=== PATIENT | female | born 1980 | race Caucasian/White ===

== ENCOUNTER 2020-05-23 10:19 | Outpatient (CLI) | payer OTHER, SELFPAY ==
--- NOTE | ~2020-05-23 | XR_ITS ---
EXAMINATION: XR elbow LT min 3V DATE: 05/23/2020 10:41 INDICATION: Left elbow pain. TECHNIQUE: 3 views of left elbow were obtained. COMPARISON: None. FINDINGS: Bone alignment is normal. No fracture. Joint spaces are well maintained. There is no elbow joint effusion. IMPRESSION: 1. Normal left elbow. Reviewed, dictated and finalized at location B. ICAL THERAPY DIRECTOR IMPRESSION: 1. Normal left elbow.
== END 2020-05-23 10:20 | disposition home or self-care (01) ==
LOC: CHSIMG 10:23
PROVIDERS: PCP Family Medicine; Visit Provider Orthopaedic Surgery
DX: M25.522 Pain in left elbow (principal)
CPT/HCPCS: 73080

== ENCOUNTER 2020-10-15 07:56 | Outpatient (CLI) | payer OTHER, SELFPAY | END 2020-10-15 07:57 | disposition home or self-care (01) | LOC: CHSCOVIDVC 07:56 | PROVIDERS: PCP Family Medicine | DX: Z23 Encounter for immunization (principal) | CPT/HCPCS: 0011A; 91301 ==

== ENCOUNTER 2020-11-12 08:02 | Outpatient (CLI) | payer OTHER, SELFPAY | END 2020-11-12 08:03 | disposition home or self-care (01) | LOC: CHSCOVIDVC 08:02 | PROVIDERS: PCP Family Medicine | DX: Z23 Encounter for immunization (principal) | CPT/HCPCS: 0012A; 91301 ==

== ENCOUNTER 2021-06-14 15:19 | Outpatient (CLI) | payer OTHER, SELFPAY ==
[2021-06-14 16:43] LABS: SARS-CoV-2 Ag Negative (Negative)
== END 2021-06-14 15:20 | disposition home or self-care (01) ==
LOC: CHSLAB 15:22
PROVIDERS: PCP Family Medicine; Visit Provider Physician Assistant
DX: Z20.822 Contact with and (suspected) exposure to COVID-19 (principal)
CPT/HCPCS: 87426; C9803

== ENCOUNTER 2021-06-19 13:48 | Outpatient (CLI) | payer OTHER, SELFPAY ==
[2021-06-19 15:08] LABS: SARS-CoV-2 Ag Positive (Negative)
== END 2021-06-19 13:49 | disposition home or self-care (01) ==
LOC: CHSLAB 13:50
PROVIDERS: PCP Family Medicine; Visit Provider Family Medicine
DX: U07.1 COVID-19 (principal)
CPT/HCPCS: 87426; C9803

== ENCOUNTER 2021-07-14 08:25 | Outpatient (CLI) | payer OTHER, SELFPAY ==
--- NOTE | ~2021-07-14 | MM_ITS ---
EXAMINATION: MM screening willie BI w eagle HISTORY: Baseline screening mammogram TECHNIQUE: Craniocaudal and mediolateral oblique 3-D tomosynthesis images were obtained and synthetic 2-D images were generated. CAD analysis was submitted and interpreted. COMPARISON: None, baseline BREAST PARENCHYMAL COMPOSITION: There are scattered areas of fibroglandular density. FINDINGS: RIGHT BREAST: An asymmetry is present in the lower breast 4.5 cm from the nipple on the mediolateral oblique view. LEFT BREAST: There is focal asymmetry anterior third slightly outer breast approximately 3 cm from th e nipple. IMPRESSION: 1. Bilateral breast findings as described above. 2. Additional mammographic views and possible breast ultrasound are recommended. BI-RADS Category 0: Incomplete: Needs additional imaging evaluation. Reviewed, dictated and finalized at location A. ER IMPRESSION: 1. Bilateral breast findings as described above. 2. Additional mammographic views and possible breast ultrasound are recommended . BI-RADS Category 0: Incomplete: Needs additional imaging evaluation.
== END 2021-07-14 08:26 | disposition home or self-care (01) ==
LOC: CHSIMG 08:27
PROVIDERS: PCP Family Medicine; Visit Provider Family Medicine
DX: Z12.31 Encounter for screening mammogram for malignant neoplasm of breast (principal)
CPT/HCPCS: 77063; 77067

== ENCOUNTER 2021-07-28 08:16 | Outpatient (CLI) | payer OTHER, SELFPAY ==
--- NOTE | ~2021-07-28 | MM_ITS ---
EXAMINATION: MM diagnostic willie BI w eagle HISTORY: Right breast asymmetry and focal asymmetry of the left breast on screening mammogram TECHNIQUE: Additional 3-D tomosynthesis images of the breasts were performed and synthetic 2-D images were generated. CAD analysis was submitted and interpreted. COMPARISON: 07/14/2021 FINDINGS: No persistent asymmetry or focal asymmetry are identified with spot compression views of th e breasts. There is no suspicious mass, calcification, or architectural distortion. IMPRESSION: 1. No mammographic evidence of malignancy. 2. Recommend routine screening mammography in one year. BI-RADS Category 1: Negative Reviewed, dictated and finalized at location A. NGUAL INSIDE SALES REPRESENTATIVE
== END 2021-07-28 08:17 | disposition home or self-care (01) ==
PROVIDERS: PCP Family Medicine; Visit Provider Nurse Practitioner Women's Health
DX: R92.8 Other abnormal and inconclusive findings on diagnostic imaging of breast (principal)
CPT/HCPCS: 77062; 77066; G0279

== ENCOUNTER 2022-12-10 14:34 | Outpatient (CLI) | payer OTHER, SELFPAY ==
--- NOTE | ~2022-12-10 | MM_ITS ---
EXAMINATION: MM screening willie BI w eagle HISTORY: Screening mammogram TECHNIQUE: Craniocaudal and mediolateral oblique 3-D tomosynthesis images were obtained and synthetic 2-D images were generated. CAD analysis was submitted and interpreted. COMPARISON: July 28, 2021 diagnostic bilateral mammogram 07/14/2021 bilateral screening mammogram BREAST PARENCHYMAL COMPOSITION: There are scattered areas of fibroglandular density. FINDINGS: There is no evidence of suspicious mass, calcification, or architectural distortion to sugg est malignancy in either breast. There has been no suspicious interval change. IMPRESSION: 1. No mammographic evidence of malignancy. 2. Recommend routine screening mammography in one year. BI-RADS Category 1: Negative Reviewed, dictated and finalized at location A.
== END 2022-12-10 14:35 | disposition home or self-care (01) ==
LOC: CHSIMG 14:35
PROVIDERS: PCP Family Medicine; Visit Provider Family Medicine
DX: Z12.31 Encounter for screening mammogram for malignant neoplasm of breast (principal)
CPT/HCPCS: 77063; 77067

== ENCOUNTER 2023-12-16 07:57 | Outpatient (CLI) | payer OTHER, SELFPAY ==
--- NOTE | ~2023-12-16 | MM_ITS ---
EXAMINATION: MM screening willie BI w eagle HISTORY: Screening mammogram TECHNIQUE: Craniocaudal and mediolateral oblique 3-D tomosynthesis images were obtained and synthetic 2-D images were generated. CAD analysis was submitted and interpreted. COMPARISON: 12/10/2022, 07/28/2021, 07/14/2021 BREAST PARENCHYMAL COMPOSITION:Not Dense. The breasts are almost entirely fatty FINDINGS: No suspicious mass, calcification, or architectural distortion are identified in either kj ast to suggest malignancy. There has been no suspicious interval change. IMPRESSION: No mammographic evidence of malignancy. Recommend routine screening mammography in one year. BI-RADS Category 1: Negative Reviewed, dictated and finalized at location .
== END 2023-12-16 07:58 | disposition home or self-care (01) ==
LOC: CHSIMG 07:59
PROVIDERS: PCP Family Medicine; Visit Provider Registered Nurse
DX: Z12.31 Encounter for screening mammogram for malignant neoplasm of breast (principal)
CPT/HCPCS: 77063; 77067

== ENCOUNTER 2024-01-28 22:34 | Emergency (ER) | payer OTHER, SELFPAY ==
--- NOTE | ~2024-01-28 | CT_ITS ---
EXAMINATION: CT abdomen pelvis wo con DATE: 01/28/2024 22:47 INDICATION: right flank pain TECHNIQUE: Computed tomography (CT) of the abdomen and pelvis was performed without intravenous contr ast. Automated exposure control and iterative reconstruction technique were employed. The dose-length product was 796.52 mGy-cm. COMPARISON: None. FINDINGS: Lower thorax: Subsegmental lingular atelectasis/scar. Small air cyst in the right lower lobe. Calcifi ed right middle lobe granuloma. Liver: Mildly enlarged. Biliary/Gallbladder: Gallbladder is absent. No bile duct dilation. Pancreas: Punctate calcification over the pancreatic body may represent product pancreatic or vascula r calcification. Spleen: Normal. Adrenals:No mass. Kidneys: No suspicious mass, obstructing stone, or hydronephrosis. GI tract: No small or large bowel dilation. Normal appendix. Mesentery/Peritoneum: No ascites, mass, or free air. Retroperitoneum: No mass. Atherosclerotic abdominal aortic and/or arterial calcifications. Pelvis: Normal urinary bladder. Absent uterus. Normal bilateral ovaries. 3.1 cm circumscribed fluid d ensity right ovarian lesion, likely a simple cyst, no additional imaging recommended at this time. Soft Tissues: Soft tissues and body wall unremarkable. Bones: No acute osseous finding. IMPRESSION: Mild hepatomegaly. Otherwise unremarkable CT abdomen and pelvis findings. Reviewed, dictated and finalized at location K.
[2024-01-28 22:35] VITALS: BP 182/108; PULSE 97; RESP 18; TEMP 36.6; O2SAT 97
--- NOTE | 2024-01-28 22:40 | ED.BACK ---
HPI - Back Pain/Injury General Chief Complaint: Back Pain/Injury Stated Complaint: lower back and flank pain Time Seen by Provider: 01/28/24 22:38 History of Present Illness HPI Narrative: Pt presents with right low back pain for about a week off and on but steady since yesterday and worsening today. Pt says it waxes and wanes in severity. Pt says it gort worse with movement and started radiating around to front of abdomen and groin this evening. Pt denies problems with bladder or bowels or any numbness or weakness. Pt denies dysuria or frequency. Pt denies any injury. Related Data Home Medications Medication Instructions Recorded Confirmed venlafaxine 75 mg capsule,extended See Rx Instructions PO DAILY 05/23/20 release 24 hr (Effexor XR) tretinoin 0.05 % topical cream 1 applic topical QHS 11/14/23 venlafaxine 150 mg 150 mg PO DAILY 11/14/23 capsule,extended release 24 hr Allergies Allergy/AdvReac Type Severity Reaction Status Date / Time No Known Allergies Allergy Unverified 12/25/23 09:11 Review of Systems Review of Systems: All systems reviewed & are unremarkable except as noted in HPI and below PMFSH Past Medical History Medical History Allergies Anxiety Depression Lateral epicondylitis of left elbow Medial epicondylitis, left elbow Surgical History Surgical History H/O tubal [facility] Family History Family History Father Heart disease Mother Heart disease Other High cholesterol Hypertension Social History Social History Smoking packs per day: 0.5 Smoking cigarettes per day: 10.0 Years smoked: 17 Smoking pack-years: 8.50 Smoking status: Current every day smoker Tobacco type: cigarettes Alcohol intake: current Substance use: unknown Living arrangements: with family Occupation/Education: occupation Gender identity (if verbalized by the patient): Female Exam Const: General: healthy appearing and no acute distress Nutritional Appearance: well nourished Orientation/consciousness: patient oriented x3 Limitations: no limitations Neck: Neck: normal visual inspection Chest: Chest palpation & inspection: normal inspection of the chest Resp: Effort & Inspection: normal respiratory effort Auscultation: clear to auscultation bilaterally Cardio: Rate: regular rate Rhythm: regular rhythm GI: GI Palp: Yes Soft to palpation and No Tenderness to palpation present (GI) Auscultation: normal bowel sounds Back/Spine/Pelvis: Back: no CVA tenderness Other: tender right low paraspinous muscles with spasm Skin: General skin exam: normal color Rashes: no rashes Wounds: no wounds Neuro: General: patient oriented x3 Cranial nerves: Yes Nystagmus not present Speech: normal speech Gait exam (Neuro): Normal gait present Extrem: General: normal to inspection and no clubbing, cyanosis or edema Psych: Mental Status: mental status grossly normal Affect: normal affect Attitude: cooperative Course Vital Signs Vital signs: Vital Signs Temperature 97.9 F 01/28/24 22:35 Pulse Rate 97 01/28/24 22:35 Respiratory Rate 18 01/28/24 22:35 Blood Pressure 182/108 H 01/28/24 22:35 Pulse Oximetry 97 01/28/24 22:35 Oxygen Delivery Room Air 01/28/24 22:35 Temperature 97.9 F 01/28/24 22:35 Pulse Rate 97 01/28/24 22:35 Respiratory Rate 18 01/28/24 22:35 Blood Pressure 182/108 H 01/28/24 22:35 Pulse Oximetry 97 01/28/24 22:35 Oxygen Delivery Room Air 01/28/24 22:35 MDM - Back Pain/Injury MDM Narrative Medical decision making narrative: musculoskeltal back pain vs kidney stone vs pyelo. will check labs and UA and get Ct abd/pelvis to rule out stone. will give torad
[2024-01-28 22:57] LABS: Basophils Absolute Auto 0.05 K/mm3 (0.00-0.10); Basophils Percent Auto 0.7 % (0.0-1.0); Eosinophils Absolute Auto 0.19 K/mm3 (0.02-0.50); Eosinophils Percent Auto 2.5 % (1.0-6.0); Hematocrit 41.2 % (35.0-49.0); Hemoglobin 13.3 g/dL (12.0-15.0); Immature Granulocyte Absolute 0.02 K/mm3 (0.00-0.00); Immature Granulocyte Percent A 0.3 % (0.0-0.0); Lymphocytes Absolute Auto 2.73 K/mm3 (1.10-4.50); Lymphocytes Percent Auto 35.5 % (18.0-42.0); Mean Corpuscular HGB Conc 32.3 g/dL (32-36); Mean Corpuscular Hemoglobin 25.9 pg (27.0-31.0); Mean Corpuscular Volume 80.3 fL (78.0-102.0); Mean Platelet Volume 8.8 fl (9.2-11.8); Monocytes Absolute Auto 0.69 K/mm3 (0.10-0.90); Neutrophils Absolute Auto 4.01 K/mm3 (1.70-7.20); Platelet Count Result 301 K/mm3 (150-420); Red Blood Count 5.13 M/mm3 (4.20-5.40); Red Cell Distribution Width 15.1 % (11.6-14.4); White Blood Count 7.7 K/mm3 (4.8-10.8)
[2024-01-28 23:11] LABS: Alanine Aminotransferase 15 U/L (14-59); Albumin Level 3.4 g/dL (3.4-5.0); Alkaline Phosphatase 122 U/L (46-116); Anion Gap 6 mmol/L (4-12); Aspartate Amino Transferase 18 U/L (15-37); Bilirubin,Total 0.1 mg/dL (0.00-1.00); Blood Urea Nitrogen 15 mg/dL (7-18); Calcium 9.4 mg/dL (8.5-10.1); Carbon Dioxide 28 mmol/L (21-32); Chloride 99 mmol/L (98-108); Estimated CRCL calculation 61 ml/min; Estimated Glomerular Filt Rate 55; Glucose 107 mg/dL (70-99); Osmolality Calculated 276 mOsm/kg (285-295); Potassium 3.7 mmol/L (3.5-5.1); Sodium 133 mmol/L (136-145)
[2024-01-28] MEDS: SODIUM CHLORIDE 0.9% IV 1,000 ML 999 ML IV CONT (23:11)
[2024-01-28] MEDS: ONDANSETRON INJ 4 MG/2 ML VIAL IV PUSH (23:13)
[2024-01-28] MEDS: KETOROLAC 30 MG/ML VIAL (*BKC) 15 MG IV PUSH (23:14)
[2024-01-28 23:15] LABS: Add Urine Microscopic? NO; Appearance Urine Clear (Clear); Bilirubin Urine Negative (Negative); Blood Urine Trace-intact (Negative); Color Urine Yellow (Yellow); Glucose Urine UA Negative (Negative); Ketones Urine Negative (Negative); Leukocyte Esterase Ur Negative LEU/UL (Negative); Nitrate Urine Negative (Negative); Protein Urine Negative (Negative); Specific Grav Ur >= 1.030 (1.010-1.020); Urobilinogen Urine 0.2 mg/dL (0.2-1.0)
[2024-01-28] MEDS: fentaNYL CITRATE INJ (*CRX) 100 MCG/2 ML VIAL 50 MCG IV PUSH (23:20)
--- NOTE | 2024-01-28 23:53 | PC.NURSE ---
PT RESTING ON STRETCHER RATES PAIN 5/10 AT THIS PT STATES PAIN IS INTERMITTENT
[2024-01-29 00:52] VITALS: BP 155/83; PULSE 82; RESP 18; O2SAT 100
== END 2024-01-29 00:07 | disposition home or self-care (01) ==
PROVIDERS: Emergency Provider Emergency Medicine; PCP Family Medicine
DX: M54.50 Low back pain, unspecified (principal); F17.210 Nicotine dependence, cigarettes, uncomplicated
CPT/HCPCS: 36415; 74176; 80053; 81003; 85025; 96361; 96374; 99283; 99284; J1885; J2405; J3010; J7030

== ENCOUNTER 2024-11-30 13:48 | Outpatient (CLI) | payer OTHER, SELFPAY ==
--- OUTSIDE RECORDS SUMMARY | 2024-11-30 14:53 | XMS_ITS | Clinical Summary ---
Author Organization [facility] Address [address] [place] [address] Care Team Providers Care Risk Assessment Consultant Name Role Phone Jared Salomon MD Primary Care Provider [phone] Allergies No known active allergies Medications venlafaxine (EFFEXOR) 50 mg tablet Take 50 mg by mouth 2 (two) times a day Active multivit-mineral s/folic acid (ADULT ONE DAILY GUMMIES ORAL) Take by mouth Active Active Problems Problem Noted Date Diagnosed Date No pathologic diagnosis 10/31/2013 Overview (09/19/2016): No diagnosis Resolved Problems Problem Noted Date Diagnosed Date Resolved Date Menometrorrhagia 12/07/2019 02/16/2020 Intramural and submucous leiomyoma of uterus 0 02/16/2020 Encounter for sterilization 10/15/2018 02/16/2020 Overview (10/15/2018): Added automatically from request for surgery Surgical History Surgery Date Site/Laterality Comments OTHER SURGICAL HISTORY 06/17/2002 - 06/16/2003 : 7 hr labor OTHER SURGICAL HISTORY 06/17/2006 - 06/16/2007 : 1/2 hr labor CHOLECYSTECTOMY Cholecystectomy TUBAL LIGATION 12/10/2018 Bilateral salpingectomy DIAGNOSTIC LAPAROSCOPY 06/17/2000 - 06/16/2001 ovarian cyst TOTAL VAGINAL HYSTERECTOMY 01/20/2020 [facility], Jaydon's culdoplasty for submucosal fibroid Medical History Medical History Date Comments Hx Other Medical 2002 ; Outc ome: 29 week 4 lb(s) 7 oz Female Hx Other Medical 2006 ; Outc ome: 31 week 7 lb(s) 1 oz Male Depression Urinary tract infection Anemia Ovarian cyst Fibroid Family History Medical History Relation Name Comments Heart disease Father Heart disease; Hyperlipidemia Father Hyperlipidemi a; Relation Name Status Comments Father Social History Tobacco Use Types Packs/Day Years Used Date Smoking Tobacco: Every Day Cigarettes 0.5 20 Smokeless Tobacco: Current Tobacco Cessation:Ready to Q uit: Yes; Counseling Given: Yes Comments:Smoking History Packs/day: 0.5 Packs. 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 Gender Identity Not on file Sexual Orientation Not on file Obstetrics History Para Term AB IAB SAB Ectopic Multiple Livin g Live Births 2 2 Date Outcome GA Total Labor Labor/2nd/3rd Weight Sex Type Anes PTL Carola A1 A5 Name Clin Para Para Last Filed Vital Signs Vital Sign Reading Time Taken Comments Blood Pressure 120/70 03/22/2020 11:04 AM CDT Pulse 85 01/21/2020 9:00 AM CDT Temperature 36.7 C (98.1 F) 01/21/2020 9:00 AM CDT Respiratory Rate 18 01/21/2020 9:00 AM CDT Oxygen Saturation 99% 01/21/2020 4:15 AM CDT Inhaled Oxygen Concentration - - Weight 78 kg (172 lb) 03/22/2020 11:04 AM CDT Height 165.1 cm (5' 5) 03/22/2020 11:04 AM CDT Body Mass Index 28.62 03/22/2020 11:04 AM CDT Plan of Treatment Health Maintenance Due Date Last Done Comments Colon Cancer Screening-Colonoscopy 1978 Hepatitis C Screening 1978 DTaP/Tdap/Td Vaccine (1 - Tdap) 1989 Hepatitis B Screening 1996 Pneumococcal vaccine <65 (1 of 2 - PCV) 1997 Depression Screening 11/22/2020 11/23/2019 Regular Well Visit/Exam 18-64 11/22/2020 11/23/2019, 03/25/2018 Breast Cancer Screening-Mammogram 07/28/2022 07/28/2021, 07/14/2021 Covid-19 Vaccine ( season) 2024 11/12/2020, 10/15/2020 Influenza Vaccine (Season Ended) 2025 Cervical Cancer Screening Discontinued 2019, 03/25/2018 HPV Vaccines Aged Out No longer eligi ble based on patient's age to complete this topic Procedures Procedure Name Priority Date/Time Associated Diagnosis Comments MAMMOGRAPHY Schedule Routine, Read Routine (OP Routine) 07/28/2021 PAP IG, HPV-HR Routine 11/23/2019 11:58 AM CDT Well woman exam from Last 3 Months or Most Recently Relevant to Health Maintenance Results * MAMMOGRAPHY (07/28/2021) Anatomical Region Laterality Modality Breast Mammography Emma Wall NP IMG MAMMO PROCEDURES Akua l Result * Pap IG, HPV-hr (11/23/2019 11:58 AM CDT) Clinical indication Comment [facility] - 01 Comment:NEGATIVE FOR INTRAEP ITHELIAL LESION OR MALIGNANCY. Specimen adequacy: Comment [facility] - 01 Comment: Satisfactory for evaluation. Endocervical and/or squamous metaplastic cells (endocervical component) are present. Clinician provided ICD10 Comment [facility] - 01 Comment:Z01.419 Performed by Comment [facility] - 01 Comment:Tyson Somers, Cyto technologist (ASCP) . . [facility] - 01 Note: Comment [facility] - 01 Comment: The Pap smear is a screening test designed to aid in the detection of premalignant and malignant conditions of the uterine cervix. It is not a diagnostic procedure and should not be used as the sole means of detecting cervical cancer. Both false-positive and false-negative reports do occur. Test methodology Comment [facility] - 01 Comment: This liquid based ThinPrep(R) pap test was screened with the use of an image guided system. HPV, high-risk Negative Negative [facility] 02 Comment: This nucleic acid amplification high-risk HPV test detects thirteen high-risk types (16,18,31,33,35,39,45,51,52,56,58,59,68) without differentiation. Endocervical/vagi nal 11/23/2019 11:58 AM CDT 11/23/2019 Narrative [facility] - 11/25/2019 7:08 PM CDT Performed at: - [facility] [id number] Hadoop Analyst: Yenni Lindsey MD, Phone: [phone] Performed at: - [facility] [id number] Hadoop Analyst: Yenni Lindsey MD, Phone: [phone] Specimen Comment: No. of containers..01 ThinPrep Vial Emma Wall NP LAB PATHOLOGY ORDERABLES Final Result Performing Organization Address City/State/[facility] de [facility] Number [facility] - 01 [facility] 02 from Last 3 Months or Most Recently Relevant to Health Maintenance Insurance [facility] CHOICE PLUS Advance Directives For more information, please contact: [phone] * Full Code (Latest Code Status on File) Date Activated Date Inactivated Comments 01/20/2020 11:00 AM 01/21/2020 7:19 PM * Full Code Date Activated Date Inactivated Comments 12/10/2018 2:44 PM 12/10/2018 7:41 PM Care Teams Risk Assessment Consultant Relationship Specialty Start Date End Date Jared Salomon MD [address] [place] [id number] PCP - General 02/22/14
--- OUTSIDE RECORDS SUMMARY | 2024-11-30 14:53 | XMS_ITS | Referral Summary ---
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 of containers..01 ThinPrep Vial us Emma Wall NP LAB PATHOLOGY ORDERABLES Final Result [facility] - 01 [facility] 02 from Last 3 Months or Most Recently Relevant to Health Maintenance Insurance [facility] [place] [address] Advance Directives For more information, please contact: [phone] * Full Code (Latest Code Status on File) Date Activated Date Inactivated Comments 01/20/2020 11:00 AM 01/21/2020 7:19 PM * Full Code Date Activated Date Inactivated Comments 12/10/2018 2:44 PM 12/10/2018 7:41 PM Care Teams Salesperson Wigs Relationship Specialty Start Date End Date Jared Salomon MD [address] [place] [id number] PCP - General 02/22/14
== END 2024-11-30 13:49 | disposition home or self-care (01) ==
LOC: CHSAUDIO 13:49
PROVIDERS: PCP Otolaryngology; Visit Provider Otolaryngology
DX: H69.92 Unspecified Eustachian tube disorder, left ear (principal); H93.A2 Pulsatile tinnitus, left ear; H70.12 Chronic mastoiditis, left ear
CPT/HCPCS: 92557; 92567

== ENCOUNTER 2025-02-08 11:58 | Outpatient (CLI) | payer OTHER, SELFPAY ==
--- NOTE | ~2025-02-08 | MM_ITS ---
EXAMINATION: MM screening [facility] HISTORY: Screening TECHNIQUE: Craniocaudal and mediolateral oblique 3-D tomosynthesis images were obtained and synthetic 2-D images were generated. CAD analysis was submitted and interpreted. COMPARISON: Comparison to multiple prior studies sequentially, with oldest reviewed study dated 07/14/2021. BREAST PARENCHYMAL COMPOSITION: The breasts are almost entirely fatty. FINDINGS: There is no evidence of suspicious mass, calcification, or architectural distortion to suggest malignancy in either breast. IMPRESSION: 1. No mammographic evidence of malignancy. 2. Recommend routine screening mammography in one year. BI-RADS Category 1: Negative Reviewed, dictated and finalized at location B.
--- OUTSIDE RECORDS SUMMARY | 2025-02-08 12:23 | XMS_ITS | Patient Health Record ---
Author Organization [facility] Address [address] [place], [place] [id number] Care Team Providers Care Gravity Prospecting Observer Name Role Phone INGE MCKEON Unavailable [phone] Rico Valenzuela Unavailable Unavailable Reason For Referral No Information Plan Of Treatment No Information Insurance Providers Payer Name Payer Address Payer Phone Subscriber Number Group Number Insured Name Patient Relationship to Insured Coverage Start Date Coverage End Date [facility] [address] [address] [place] [id number] TYSON FITZPATRICK Spouse - patient is the spouse of the insured
--- OUTSIDE RECORDS SUMMARY | 2025-02-08 12:23 | XMS_ITS | Patient Health Record ---
Author Organization [facility] Address [address] [place], [place] [id number] Support Name Relationship Address Phone PANCHO FITZPATRICK Guarantor Unknown Reason For Referral No Information Medications Medication SIG (Take, Route, Frequency, Duration) Notes Start Date End Date Status clobetasol propionate 0.0005 MG/MG Topical Ointment [Temovate] CUTANEOUS clobetasol propionate 0.0005 MG/MG Topical Ointment [Temovate]Original Medicationclobetasol propionate 0.0005 MG/MG Topical Ointment [Temovate] *Reorder from [employer] for eRx and Interaction Alerts* 5 Active Benzonatate 200 MG Oral Capsule ORAL benzonatate 200 MG Oral CapsuleOriginal Medicationbenzonatate 200 MG Oral Capsule *Reorder from [employer] for eRx and Interaction Alerts* 4 Active Nabumetone 500 MG Oral Tablet ORAL nabumetone 500 MG Oral TabletOriginal Medicationnabumetone 500 MG Oral Tablet *Reorder from [employer] for eRx and Interaction Alerts* 4 Active metroNIDAZOLE 500 MG Oral Tablet ORAL metronidazole 500 MG Oral TabletOriginal Medicationmetronidazole 500 MG Oral Tablet *Reorder from [employer] for eRx and Interaction Alerts* 4 Active tramadol hydrochloride 50 MG Oral Tablet ORAL tramadol hydrochloride 50 MG Oral TabletOriginal Medicationtramadol hydrochloride 50 MG Oral Tablet *Reorder from [employer] for eRx and Interaction Alerts* 4 Active sertraline 100 MG Oral Tablet [Zoloft] ORAL sertraline 100 MG Oral Tablet [Zoloft]Original Medicationsertraline 100 MG Oral Tablet [Zoloft] *[facility] for eRx and Interaction Alerts* 4 Active Medrol Dosepak ORAL Medrol DosepakOr iginal MedicationMedrol Dosepak *Re[facility] from [facility] for eRx and Interaction Alerts* 5 Active Plan Of Treatment No Information
--- OUTSIDE RECORDS SUMMARY | 2025-02-08 12:23 | XMS_ITS | Clinical Summary ---
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 HPV, high-risk Negative Negative [facility] 02 Comment: This nucleic acid amplification high-risk HPV test detects thirteen high-risk types (16,18,31,33,35,39,45,51,52,56,58,59,68) without differentiation. Endocervical/vagi nal 11/23/2019 11:58 AM CDT 11/23/2019 Narrative [facility] - 11/25/2019 7:08 PM CDT Performed at: - [facility] [id number] Senior Abap Developer: Yenni Lindsey MD, Phone: [phone] Performed at: - [facility] [id number] Senior Abap Developer: Yenni Lindsey MD, Phone: [phone] Specimen Comment: No. of containers..01 ThinPrep Vial Emma Wall NP LAB PATHOLOGY ORDERABLES Final Result Performing Organization Address City/State/[facility] de [facility] Number [facility] - 01 [facility] 02 from Last 3 Months or Most Recently Relevant to Health Maintenance Insurance [facility] CHOICE PLUS Advance Directives For more information, please contact: [phone] * Full Code (Latest Code Status on File) Date Activated Date Inactivated Comments 01/20/2020 11:00 AM 01/21/2020 7:19 PM * Full Code Date Activated Date Inactivated Comments 12/10/2018 2:44 PM 12/10/2018 7:41 PM Care Teams Furniture Upholstery Mechanic Relationship Specialty Start Date End Date Jared Salomon MD [address] [place] [id number] PCP - General 02/22/14
--- OUTSIDE RECORDS SUMMARY | 2025-02-08 12:23 | XMS_ITS | Clinical Summary ---
Author Organization [facility] Address [facility] [place] [address] Care Team Providers Care Medical Assistant Ob Gyn Name Role Phone Homero Thomas MD Primary Care Provider Social History Tobacco Use Types Packs/Day Years Used Date Smoking Tobacco: Never Assessed Comments Unknown Sex and Gender Information Value Date Recorded Sex Assigned at Not on file Legal Sex Female 10:43 PM CDT Gender Identity Not on file Sexual Orientation Not on file Plan of Treatment Health Maintenance Due Date Last Done Comments Cervical Cancer Screening Pa p Smear (Age 30 to 64) Every 3 Years 1978 Colorectal Cancer Screening Colonoscopy (10 Years) 1978 Annual Physical 1981 Hepatitis C 1996 DTaP, Tdap and Td Vaccines ( 1 - Tdap) 1997 Hepatitis B Vaccines (1 of 3 - 19+ 3-dose series) 1997 Cervical Cancer Screening Pa p with HPV Testing (Age 30 to 64) Every 5 Years 2008 Cervical Cancer Screening [facility] HPV 2008 Mammogram Screening 2018 COVID-19 Vaccine (2023-2 5 season) 2024 11/12/2020, 10/15/2020 Meningococcal B Vaccine Aged Out No l onger eligible based on patient's age to complete this topic Meningococcal Vaccine Aged Out No lesley julio eligible based on patient's age to complete this topic Pneumococcal Vaccine: Pediatrics (0 to 5 Years) and At-Risk Patients (6 to 49 Years) Aged Out No longer eligible b ased on patient's age to complete this topic RSV Immunizations Under 20 Months Aged Out No longer eligible b ased on patient's age to complete this topic Insurance [facility] Care Teams Medical Assistant Ob Gyn Relationship Specialty Start Date End Date Homero Thomas MD [address] [place] [id number] PCP - General FAMILY PRACTICE 11/27/23
== END 2025-02-08 11:59 | disposition home or self-care (01) ==
LOC: CHSIMG 12:00
PROVIDERS: PCP Family Medicine; Visit Provider Registered Nurse
DX: Z12.31 Encounter for screening mammogram for malignant neoplasm of breast (principal)
CPT/HCPCS: 77063; 77067